=== PATIENT | female | born 1950 | race Caucasian/White ===

== ENCOUNTER → 2019-03-31 | Outpatient (CLI) | payer OTHER ==
[~2019-03-31] MED LIST: AMOCLA875 PO
== END | disposition home or self-care (01) ==
LOC: LAB SHORT 08:38 → LAB EV 08:38
DX: J02.9 Acute pharyngitis, unspecified (principal)
CPT/HCPCS: 87081

== ENCOUNTER → 2020-06-03 | Outpatient (CLI) | payer OTHER | LOC: PLD 14:19 → LAB SHORT 14:19 | DX: L57.0 Actinic keratosis (principal) | CPT/HCPCS: 88305 ==